=== PATIENT | male | born 1995 | race Caucasian/White ===

== ENCOUNTER 2023-06-30 09:21 | Outpatient (OUT) | payer OTHER, SELFPAY ==
--- NOTE | 2023-06-30 09:53 | XR_ITS ---
The [address] [address] Patient Name: SHAHRAM ACOSTA MRN: [id number] date: 1995 Sex: M Assigned Patient Location: [facility] Current Patient Location: [facility] Accession/Order Number: [id number] Exam Date: 06/30/2023 09:48 Report Date: 06/30/2023 10:55 At the request of: TINA SCHOFIELD Procedure: XR chest 2V EXAM: XR chest 2V HISTORY: Cough R05.9 COMPARISON: None. TECHNIQUE: PA and lateral views of the chest. FINDINGS: The cardiomediastinal silhouette is normal. No focal consolidation is identified. There is no pneumothorax. No pleural effusion is noted. The osseous structures are intact. XR/XR chest 2V IMPRESSION: No acute cardiopulmonary process. Electronically authenticated by: BILL OVIEDO Date: 06/30/2023 10:55
== END 2023-06-30 09:22 | disposition home or self-care (01) ==
LOC: RAD 09:34
PROVIDERS: PCP Family Medicine; Visit Provider Family Medicine
DX: R05.9 Cough, unspecified (principal)
CPT/HCPCS: 71046

== ENCOUNTER 2023-10-17 21:32 | Emergency (ER) | payer OTHER, SELFPAY ==
[2023-10-17 21:37] VITALS: BP 146/84; PULSE 110; RESP 22; TEMP 37.7; O2SAT 97; BMI 54.9
--- OUTSIDE RECORDS SUMMARY | 2023-10-17 21:37 | XMS_ITS | CCD ---
Author Name Unknown Address [address] [place] [id number] Organization [facility] Care Team Providers Care Alterations Manager Name Role Phone KANWAL, DR WILDER Attending Unavailable KANWAL, DR WILDER Consulting Unavailable KANWAL, DR WILDER Primary Care Unavailable KANWAL, DR WILDER Admitting Unavailable Problems Active Problems Problem Classification Problem Date Documented Da te Episodic/Chronic Fever of unknown origin (1 source) Fever, unspecified; Translations: [FEVER UNSPECIFIED] Onset: 05-10-2021 Episodic Other lower respiratory disease (1 source) Cough; Translations: [COUGH] Onset: 05-10-2021 Episodic Unclassified (2 sources) CONTACT W/AND (SUSP) EXPOS COVID-19; Translations: [CONTACT W/AND (SUSP) EXPOS COVID-19] Onset: 05-10-2021 Viral infection (1 source) COVID-19; Translations: [COVID-19] Onset: 05-10-2021 Past or Other Problems Problem Classification Problem Date Documented Da te Episodic/Chronic Unclassified (1 source) CONTACT W/AND (SUSP) EXPOS COVID-19; Translations: [CONTACT W/AND (SUSP) EXPOS COVID-19] Onset: 05-06-2021 Results Test Name Value Interpretation Reference Range Facility D-Dimer High Sensitivityon 0 05-19-2021 D-Dimer High Sensitivity 302 ng/mL High 0-243 [facility] Comment on above: Order Comment: Comme nt add Result Comment: The reference range for D-dimer is <243 ng/mL D-dimer units. D-dimer results must be used in conjunction with a clinical pretest probability (PTP) assessment model for deep vein thrombosis (DVT) and pulmonary embolism (PE). Results <230 ng/mL d-dimer units can be used as a negative predictor in patients with low or moderate probability for DVT/PE. Results above the exclusion threshold of 230 ng/ml D-dimer units for DVT/PE may indicate the need for further diagnostic testing. D-Dimer can be increased in hospitalized patients due to co-morbid conditions. PERFORMED BY: [place] [address] PATHOLOGIST PROJECT EXECUTIVE KIRILL GREER M.D. Performed By: #### B SENIOR ACTUARIAL ANALYST, HS TROP, PTT, CBC, CMP, PT #### [place] [id number] [facility] D-Dimer High Sensitivityon 0 05-18-2021 D-Dimer High Sensitivity 246 ng/mL High 0-243 [facility] Comment on above: Order Comment: Comme nt add Result Comment: The reference range for D-dimer is <243 ng/mL D-dimer units. D-dimer results must be used in conjunction with a clinical pretest probability (PTP) assessment model for deep vein thrombosis (DVT) and pulmonary embolism (PE). Results <230 ng/mL d-dimer units can be used as a negative predictor in patients with low or moderate probability for DVT/PE. Results above the exclusion threshold of 230 ng/ml D-dimer units for DVT/PE may indicate the need for further diagnostic testing. D-Dimer can be increased in hospitalized patients due to co-morbid conditions. PERFORMED BY: [place] [address] PATHOLOGIST PROJECT EXECUTIVE KIRILL GREER M.D. Performed By: #### B SENIOR ACTUARIAL ANALYST, HS TROP, PTT, CBC, CMP, PT #### [place] [id number] [facility] D-Dimer High Sensitivityon 0 05-17-2021 D-Dimer High Sensitivity < 200 Normal 0-243 [facility] Comment on above: Order Comment: Comme nt add Result Comment: The reference range for D-dimer is <243 ng/mL D-dimer units. D-dimer results must be used in conjunction with a clinical pretest probability (PTP) assessment model for deep vein thrombosis (DVT) and pulmonary embolism (PE). Results <230 ng/mL d-dimer units can be used as a negative predictor in patients with low or moderate probability for DVT/PE. Results above the exclusion threshold of 230 ng/ml D-dimer units for DVT/PE may indicate the need for further diagnostic testing. D-Dimer can be increased in hospitalized patients due to co-morbid conditions. PERFORMED BY: [place] [address] PATHOLOGIST PROJECT EXECUTIVE KIRILL GREER M.D. Performed By: #### B SENIOR ACTUARIAL ANALYST, HS TROP, PTT, CBC, CMP, PT #### [facility] [address] [place] [id number] [facility] D-Dimer High Sensitivityon 0 05-16-2021 D-Dimer High Sensitivity 239 ng/mL Normal 0-243 [facility] Comment on above: Order Comment: Comme nt add Result Comment: The reference range for D-dimer is <243 ng/mL D-dimer units. D-dimer results must be used in conjunction with a clinical pretest probability (PTP) assessment model for deep vein thrombosis (DVT) and pulmonary embolism (PE). Results <230 ng/mL d-dimer units can be used as a negative predictor in patients with low or moderate probability for DVT/PE. Results above the exclusion threshold of 230 ng/ml D-dimer units for DVT/PE may indicate the need for further diagnostic testing. D-Dimer can be increased in hospitalized patients due to co-morbid conditions. PERFORMED BY: [place] [address] PATHOLOGIST PROJECT EXECUTIVE KIRILL GREER M.D. Performed By: #### B SENIOR ACTUARIAL ANALYST, HS TROP, PTT, CBC, CMP, PT #### [place] [id number] [facility] B-Type Natriuretic Peptideon 05-15-2021 Natriuretic peptide B (Bld) [Mass/Vol] 24.0 pg/mL Normal 5-100 [facility] Comment on above: Result Comment: PERF ORMED BY: [place] [address] PATHOLOGIST PROJECT EXECUTIVE KIRILL GREER M.D. Performed By: #### B SENIOR ACTUARIAL ANALYST, HS TROP, PTT, CBC, CMP, PT #### [place] [id number] [facility] BioFire Detectedon 1 BioFire Detected Detected Critically abnormal Not Detect e [facility] Comment on above: Result Comment: This is a duplicate RP2.1 COVID (PCR) result to be used for statistical tracking purpose only. PERFORMED BY: [facility] [address] [place] [address] PATHOLOGIST PROJECT EXECUTIVE KIRILL GREER M.D. Performed By: #### R OLVIN PANEL UPP., BIOFIRECOVDET ####[facility] [id number] [place] [id number] [facility] Blood Cultureon 05-15-2021 Bacteria identified Cx Nom (Bld) BioFire BCID Panel results called at 0451 on 05/16/21 Gram Stain Gram Positive Cocci in Clusters ORGANISM: Staphylococcus lugdunensis (O:STALUG) Aerobic FARZANEH Charge (PC45) ----- SUSCEPTIBILITY ---- ORGANISM: O:STALUG ANTIBIOTIC INTERPRETATION FARZANEH Amoxacillin/K Clavulanate S <4/2 Ampicillin/Sulbactam S <8/4 Azithromycin S <2 Cefazolin S <8 Ceftriaxone S <8 Ciprofloxacin S <1 Daptomycin S <1 Erythromycin S <0.25 Levofloxacin S <1 Linezolid S <2 Meropenem S <4 Oxacillin S 1 Penicillin S 0.12 Piperacillin/Tazobac zhu S <4 Rifampin S <1 Tetracycline S <4 Trimethoprim/Sulfame thoxazole S <0.5/9.5 Vancomycin S 1 BioFire BCID Panel results called at 0451 on 05/16/21 Acinetobacter baumannii Not detected Staphylococcus aureus Not detected Ifeoma albicans Not detected E. Coli Not detected E. cloacae complex Not detected Enterococcus Not detected Enterobacteriaceae Not detected Ifeoma glabrata Not detected Haemophilus influenzae Not detected Klebsiella oxytoca Not detected Klebsiella pneumoniae Not detected KPC resistance gene Not Applicable Ifeoma krusei Not detected Listeria monocytogenes Not detected mecA resistance gene Not detected Neisseria meningitidis Not detected Ifeoma parapsilosis Not detected Streptococcus pneumoniae Not detected Proteus Not detected Pseudomonas aeruginosa Not detected Serratia marcescens Not detected Staphylococcus Detected Streptococcus Not detected S. pyogenes (Group A) Not detected S. agalactiae (Group B) Not detected Ifeoma tropicalis Not detected Carlotta/B resistance gene Not Applicable S = SUSCEPTIBLE I = INTERMEDIATE R = RESISTANT BLANK = DATA NOT AVAILABLE, OR DRUG NOT ADVISABLE OR TESTED R* = RESISTANCE DUE TO EXTENDED SPECTRUM BETA-LACTAMASES ESBL = EXTENDED SPECTRUM BETA-LACTAMASE TFG = THYMIDINE-DEPENDENT STRAIN ALE = BETA-LACTAMASE POSITIVE IB = INDUCIBLE BETA-LACTAMASE. APPEARS IN PLACE OF 'S' WITH SPECIES KNOWN TO POSSESS INDUCIBLE BETA-LACTAMASES. POTENTIALLY THEY MAY BECOME RESISTANT TO ALL B-LACTAM DRUGS. PERFORMED BY: [place] [address] PATHOLOGIST PROJECT EXECUTIVE KIRILL GREER M.D. [facility] Comment on above: Performed By: #### L MELVA DEVINE ####[place] [id number] Bacteria identified Cx Nom (Bld) NO GROWTH 5 DAYS PERFORMED BY: [place] [address] PATHOLOGIST PROJECT EXECUTIVE KIRILL GREER M.D. [facility] Comment on above: Performed By: #### L MELVA DEVINE #### [facility] [address] [place] [address] COVID-19 Antigenon 1 COVID-19 Antigen Healthcare Worker?: N Gio Reference Gio Reference Negative SARS-CoV+SARS-CoV-2 (COVID-19) Ag [Presence] in Respiratory specimen by Rapid immunoassay Negative for SARS Antigen by MANGO COVID19 Blank Space Gio Disclaimer Negative results, from patients with symptom Gio Disclaimer onset beyond five days, should be treated as Gio Disclaimer presumptive and confirmation with a molecular Gio Disclaimer assay, if necessary, for patient management, Gio Disclaimer may be performed. Negative results do not rule Gio Disclaimer out COVID-19 and should not be used as the sole Gio Disclaimer basis for treatment or patient management Gio Disclaimer decisions, including infection control decisions. Gio Disclaimer Negative results should be considered in the Gio Disclaimer context of a patient's recent exposures, history Gio Disclaimer and the presence of clinical signs and symptoms Gio Disclaimer consistent with COVID-19. COVID19 Blank Space Gio Disclaimer The Gio SARS Antigen MANGO does not differentiate Gio Disclaimer between SARS-CoV and SARS-CoV-2. COVID19 Blank Space Gio Disclaimer This test was developed and its performance Gio Disclaimer characteristic determined by [employer] and Gio Disclaimer validated at [facility]. This Gio Disclaimer test has not been FDA cleared or approved. This Gio Disclaimer test has been authorized by FDA under an Emergency Use Gio Disclaimer Authorization (EUA). This test has been validated Gio Disclaimer in accordance with the FDA's Guidance Document (Policy Gio Disclaimer for Diagnostics Testing in Laboratories Certified to Gio Disclaimer Perform High Complexity Testing under CLIA prior to Gio Disclaimer Emergency Use Authorization for Coronavirus Gio Disclaimer iseas during the Public Health Emergency) Gio Disclaimer issued on November 23, 2019. This test is only authorized Gio Disclaimer for the duration of time the declaration that Gio Disclaimer circumstances exist justifying the authorization of Gio Disclaimer the emergency use of in vitro diagnostic tests for Gio Disclaimer detection of SARS-CoV-2 virus and/or diagnosis of Gio Disclaimer COVID-19 infection under section 564(b)(1) of the Gio Disclaimer Act, 21 U.S.C. 360bbb-3(b)(1), unless the Gio Disclaimer authorization is terminated or revoked sooner. PERFORMED BY: [address] [place] [address] PATHOLOGIST PROJECT EXECUTIVE KIRILL GREER M.D. Normal [facility] Comment on above: Performed By: #### S OFIANEG, COVID-19 GIO ####[address] Complete Blood Count Auto Di ffon 05-15-2021 Basophils (Bld) [#/Vol] 0.0 10*3/uL Normal 0.0-0.2 [facility] Comment on above: Result Comment: PERF ORMED BY: [address] [place] [address] PATHOLOGIST PROJECT EXECUTIVE KIRILL GREER M.D. Performed By: #### P T, DDIMER, CBC ####[address] Basophils/100 WBC (Bld) 0.1 % Normal . [facility] Comment on above: Performed By: #### P T, DDIMER, CBC ####[address] Eosinophils (Bld) [#/Vol] 0.0 10*3/uL Normal 0.0-0.45 [facility] Comment on above: Performed By: #### P T, DDIMER, CBC ####[address] Eosinophils/100 WBC (Bld) 0.0 % Normal . [facility] Comment on above: Performed By: #### P T, DDIMER, CBC ####[address] Erythrocyte distribution width (RBC) [Ratio] 14.5 % Normal 12.0-14.8 [facility] Comment on above: Performed By: #### P T, DDIMER, CBC ####[address] Hematocrit (Bld) [Volume fraction] 49.1 % Normal 38.8-50.0 [facility] Comment on above: Performed By: #### P TXANDER, CBC ####[address] Hemoglobin (Bld) [Mass/Vol] 16.4 g/dL Normal 13.0-17.0 [facility] Comment on above: Performed By: #### P TXANDER, CBC ####[address] Lymphocytes (Bld) [#/Vol] 0.7 10*3/uL Low 1.00-4.8 [facility] Comment on above: Performed By: #### P XANDER Maradiaga, CBC ####[address] Lymphocytes/100 WBC (Bld) 7.2 % Normal . [facility] Comment on above: Performed By: #### P TXANDER, CBC ####[address] MCH (RBC) [Entitic mass] 28.1 pg Normal 27.5-35.2 [facility] Comment on above: Performed By: #### P TXANDER, CBC ####[address] MCV (RBC) [Entitic vol] 83.9 fL Normal 83.5-101 [facility] Comment on above: Performed By: #### P TXANDER, CBC ####[address] Mean Corpuscular HGB Conc 33.4 g/dL Normal 32.5-35.6 [facility] Comment on above: Performed By: #### P TXANDER, CBC ####[address] Monocytes (Bld) [#/Vol] 0.3 10*3/uL Normal 0.0-0.8 [facility] Comment on above: Performed By: #### P TXANDER, CBC ####[address] [address] [facility] Monocytes/100 WBC (Bld) 3.0 % Normal . [facility] Comment on above: Performed By: #### P T, DDIMER, CBC ####[address] [address] [facility] Neutrophils (Bld) [#/Vol] 8.7 10*3/uL High 1.8-7.7 [facility] Comment on above: Performed By: #### P T, DDIMER, CBC ####[address] [address] [facility] Neutrophils/100 WBC (Bld) 89.7 % Normal . [facility] Comment on above: Performed By: #### P T, DDIMER, CBC ####[address] [address] [facility] Nucleated RBC/100 WBC (Bld) [Ratio] 0.1 % Normal 0-0.5 [facility] Comment on above: Performed By: #### P T, DDIMER, CBC ####[address] [address] [facility] Platelet mean volume (Bld) [Entitic vol] 8.0 fL Normal 6.6-10.1 [facility] Comment on above: Performed By: #### P T, DDIMER, CBC ####[address] [address] [facility] Platelets (Bld) [#/Vol] 188 10*3/uL Normal 150-450 [facility] Comment on above: Performed By: #### P T, DDIMER, CBC ####[address] [address] [facility] RBC (Bld) [#/Vol] 5.85 10*6/uL High 3.90-5.60 [facility] Comment on above: Performed By: #### P T, DDIMER, CBC ####[address] [address] [facility] WBC (Bld) [#/Vol] 9.7 10*3/uL Normal 4.5-11.0 [facility] Comment on above: Performed By: #### P T, DDIMER, CBC ####[facility] [address] Basophils (Bld) [#/Vol] 0.0 10*3/uL Normal 0.0-0.2 [facility] Comment on above: Result Comment: PERF ORMED BY: [place] [address] PATHOLOGIST PROJECT EXECUTIVE KIRILL GREER M.D. Performed By: #### B SENIOR ACTUARIAL ANALYST, HS TROP, PTT, CBC, CMP, PT #### [facility] [address] [place] [address] Basophils/100 WBC (Bld) 0.4 % Normal . [facility] Comment on above: Performed By: #### B SENIOR ACTUARIAL ANALYST, HS TROP, PTT, CBC, CMP, PT #### [address] Eosinophils (Bld) [#/Vol] 0.0 10*3/uL Normal 0.0-0.45 [facility] Comment on above: Performed By: #### B SENIOR ACTUARIAL ANALYST, HS TROP, PTT, CBC, CMP, PT #### [address] Eosinophils/100 WBC (Bld) 0.0 % Normal . [facility] Comment on above: Performed By: #### B SENIOR ACTUARIAL ANALYST, HS TROP, PTT, CBC, CMP, PT #### [facility] [address] [place] [address] Erythrocyte distribution width (RBC) [Ratio] 14.7 % Normal 12.0-14.8 [facility] Comment on above: Performed By: #### B SENIOR ACTUARIAL ANALYST, HS TROP, PTT, CBC, CMP, PT #### [address] Hematocrit (Bld) [Volume fraction] 49.1 % Normal 38.8-50.0 [facility] Comment on above: Performed By: #### B SENIOR ACTUARIAL ANALYST, HS TROP, PTT, CBC, CMP, PT #### [address] Hemoglobin (Bld) [Mass/Vol] 16.4 g/dL Normal 13.0-17.0 [facility] Comment on above: Performed By: #### B SENIOR ACTUARIAL ANALYST, HS TROP, PTT, CBC, CMP, PT #### [address] Lymphocytes (Bld) [#/Vol] 1.2 10*3/uL Normal 1.00-4.8 [facility] Comment on above: Performed By: #### B SENIOR ACTUARIAL ANALYST, HS TROP, PTT, CBC, CMP, PT #### [address] Lymphocytes/100 WBC (Bld) 12.3 % Normal . [facility] Comment on above: Performed By: #### B SENIOR ACTUARIAL ANALYST, HS TROP, PTT, CBC, CMP, PT #### [address] MCH (RBC) [Entitic mass] 27.9 pg Normal 27.5-35.2 [facility] Comment on above: Performed By: #### B SENIOR ACTUARIAL ANALYST, HS TROP, PTT, CBC, CMP, PT #### [address] MCV (RBC) [Entitic vol] 83.6 fL Normal 83.5-101 [facility] Comment on above: Performed By: #### B SENIOR ACTUARIAL ANALYST, HS TROP, PTT, CBC, CMP, PT #### [address] Mean Corpuscular HGB Conc 33.4 g/dL Normal 32.5-35.6 [facility] Comment on above: Performed By: #### B SENIOR ACTUARIAL ANALYST, HS TROP, PTT, CBC, CMP, PT #### [address] Monocytes (Bld) [#/Vol] 0.4 10*3/uL Normal 0.0-0.8 [facility] Comment on above: Performed By: #### B SENIOR ACTUARIAL ANALYST, HS TROP, PTT, CBC, CMP, PT #### [facility] [address] [place] [address] [place] Monocytes/100 WBC (Bld) 3.8 % Normal . [facility] Comment on above: Performed By: #### B SENIOR ACTUARIAL ANALYST, HS TROP, PTT, CBC, CMP, PT #### [address] Neutrophils (Bld) [#/Vol] 8.5 10*3/uL High 1.8-7.7 [facility] Comment on above: Performed By: #### B SENIOR ACTUARIAL ANALYST, HS TROP, PTT, CBC, CMP, PT #### [address] Neutrophils/100 WBC (Bld) 83.5 % Normal . [facility] Comment on above: Performed By: #### B SENIOR ACTUARIAL ANALYST, HS TROP, PTT, CBC, CMP, PT #### [address] Nucleated RBC/100 WBC (Bld) [Ratio] 0.1 % Normal 0-0.5 [facility] Comment on above: Performed By: #### B SENIOR ACTUARIAL ANALYST, HS TROP, PTT, CBC, CMP, PT #### [address] Platelet mean volume (Bld) [Entitic vol] 8.1 fL Normal 6.6-10.1 [facility] Comment on above: Performed By: #### B SENIOR ACTUARIAL ANALYST, HS TROP, PTT, CBC, CMP, PT #### [place] [address] [place] Platelets (Bld) [#/Vol] 202 10*3/uL Normal 150-450 [facility] Comment on above: Performed By: #### B SENIOR ACTUARIAL ANALYST, HS TROP, PTT, CBC, CMP, PT #### [place] [address] [place] RBC (Bld) [#/Vol] 5.87 10*6/uL High 3.90-5.60 [facility] Comment on above: Performed By: #### B SENIOR ACTUARIAL ANALYST, HS TROP, PTT, CBC, CMP, PT #### [facility] [address] WBC (Bld) [#/Vol] 10.2 10*3/uL Normal 4.5-11.0 [facility] Comment on above: Performed By: #### B SENIOR ACTUARIAL ANALYST, HS TROP, PTT, CBC, CMP, PT #### [facility] [address] Comprehensive Metabolic Pane giovana 05-15-2021 Albumin [Mass/Vol] 2.7 g/dL Low 3.2-5.5 [facility] Comment on above: Performed By: #### C MP ####[address] Albumin/Globulin [Mass ratio] 0.7 {ratio} Normal [facility] Comment on above: Performed By: #### C MP ####[place] [id number] [facility] ALP [Catalytic activity/Vol] 70 U/L Normal 32-92 [facility] Comment on above: Performed By: #### C MP ####[address] [address] [facility] ALT [Catalytic activity/Vol] 125 U/L High 10-60 [facility] Comment on above: Performed By: #### C MP ####[address] [address] [facility] AST [Catalytic activity/Vol] 181 U/L High 10-42 [facility] Comment on above: Performed By: #### C MP ####[place] [id number] [facility] Bilirubin [Mass/Vol] 1.2 mg/dL Normal 0.3-1.2 [facility] Comment on above: Performed By: #### C MP ####[address] Calcium [Mass/Vol] 8.2 mg/dL Normal 8.2-10.2 [facility] Comment on above: Performed By: #### C MP ####[place] [address] [place] [id number] [facility] Chloride [Moles/Vol] 102 mmol/L Normal 95-114 [facility] Comment on above: Performed By: #### C MP ####[place] [id number] [facility] CO2 [Moles/Vol] 23.8 mmol/L Normal 22.0-30.0 [facility] Comment on above: Performed By: #### C MP ####[place] [id number] [facility] Creatinine [Mass/Vol] 0.84 mg/dL Normal 0.64-1.27 [facility] Comment on above: Performed By: #### C MP ####[place] [id number] [facility] Creatinine Clr Calc Pharmacy 197.65 [facility] Comment on above: Result Comment: PERF ORMED BY: [facility] [address] [address] PATHOLOGIST PROJECT EXECUTIVE KIRILL GREER M.D. Performed By: #### C MP ####[place] [id number] [facility] Estimated GFR ( Patricia > 60 [facility] Comment on above: Result Comment: GFR estimated reference range: According to KDOQI guidelines, <60 ml/min/1.73m2 is sufficient to diagnose a patient with chronic kidney disease. Performed By: #### C MP ####[place] [id number] [facility] Estimated GFR (Non- Am > 60 [facility] Comment on above: Performed By: #### C MP ####[place] [id number] [facility] Globulin (S) [Mass/Vol] 4.1 g/dL [facility] Comment on above: Performed By: #### C MP ####[place] [id number] [facility] Glucose [Mass/Vol] 161 mg/dL High 70-100 [facility] Comment on above: Result Comment: Lottie Glucose Reference Range is dependent on time and content of last meal. Glucose of more than 200 mg/dL in a nonstressed, ambulatory subject supports the diagnosis of Diabetes Mellitus. ADA recommended reference range Performed By: #### C MP ####[facility] [place] [id number] [facility] Potassium [Moles/Vol] 4.1 mmol/L Normal 3.5-5.1 [facility] Comment on above: Performed By: #### C MP ####[facility] [place] [id number] [facility] Protein [Mass/Vol] 6.8 g/dL Normal 6.1-7.9 [facility] Comment on above: Performed By: #### C MP ####[facility] [place], [place] [phone] [facility] Sodium [Moles/Vol] 137 mmol/L Normal 136-146 [facility] Comment on above: Performed By: #### C MP ####[facility] [place], [place] [phone] [facility] Urea nitrogen [Mass/Vol] 10 mg/dL Normal 9-23 [facility] Comment on above: Performed By: #### C MP ####[facility] [place], [place] [id number] [facility] Albumin [Mass/Vol] 2.9 g/dL Low 3.2-5.5 [facility] Comment on above: Performed By: #### B SENIOR ACTUARIAL ANALYST, HS TROP, PTT, CBC, CMP, PT #### [facility] [address] [place] [id number] [place] Albumin/Globulin [Mass ratio] 0.6 {ratio} Normal [facility] Comment on above: Performed By: #### B SENIOR ACTUARIAL ANALYST, HS TROP, PTT, CBC, CMP, PT #### [facility] [address] [place] [id number] [place] ALP [Catalytic activity/Vol] 65 U/L Normal 32-92 [facility] Comment on above: Performed By: #### B SENIOR ACTUARIAL ANALYST, HS TROP, PTT, CBC, CMP, PT #### [facility] [address] ALT [Catalytic activity/Vol] 134 U/L High 10-60 [facility] Comment on above: Performed By: #### B SENIOR ACTUARIAL ANALYST, HS TROP, PTT, CBC, CMP, PT #### [facility] [address] AST [Catalytic activity/Vol] 215 U/L High 10-42 [facility] Comment on above: Performed By: #### B SENIOR ACTUARIAL ANALYST, HS TROP, PTT, CBC, CMP, PT #### [address] Bilirubin [Mass/Vol] 0.9 mg/dL Normal 0.3-1.2 [facility] Comment on above: Performed By: #### B SENIOR ACTUARIAL ANALYST, HS TROP, PTT, CBC, CMP, PT #### [address] Calcium [Mass/Vol] 8.3 mg/dL Normal 8.2-10.2 [facility] Comment on above: Performed By: #### B SENIOR ACTUARIAL ANALYST, HS TROP, PTT, CBC, CMP, PT #### [address] Chloride [Moles/Vol] 102 mmol/L Normal 95-114 [facility] Comment on above: Performed By: #### B SENIOR ACTUARIAL ANALYST, HS TROP, PTT, CBC, CMP, PT #### [address] CO2 [Moles/Vol] 22.1 mmol/L Normal 22.0-30.0 [facility] Comment on above: Performed By: #### B SENIOR ACTUARIAL ANALYST, HS TROP, PTT, CBC, CMP, PT #### [address] Creatinine [Mass/Vol] 0.75 mg/dL Normal 0.64-1.27 [facility] Comment on above: Performed By: #### B SENIOR ACTUARIAL ANALYST, HS TROP, PTT, CBC, CMP, PT #### [place] [address] [place] Creatinine Clr Calc Pharmacy [phone] [facility] Comment on above: Result Comment: PERF ORMED BY: [place] [address] PATHOLOGIST PROJECT EXECUTIVE KIRILL GREER M.D. Performed By: #### B SENIOR ACTUARIAL ANALYST, HS TROP, PTT, CBC, CMP, PT #### [address] Estimated GFR ( Patricia > 60 [facility] [facility] Comment on above: Result Comment: GFR estimated reference range: According to KDOQI guidelines, <60 ml/min/1.73m2 is sufficient to diagnose a patient with chronic kidney disease. Performed By: #### B SENIOR ACTUARIAL ANALYST, HS TROP, PTT, CBC, CMP, PT #### [address] Estimated GFR (Non- Am > 60 [facility] Comment on above: Performed By: #### B SENIOR ACTUARIAL ANALYST, HS TROP, PTT, CBC, CMP, PT #### [address] Globulin (S) [Mass/Vol] 4.7 g/dL Normal [facility] Comment on above: Performed By: #### B SENIOR ACTUARIAL ANALYST, HS TROP, PTT, CBC, CMP, PT #### [address] Glucose [Mass/Vol] 108 mg/dL High 70-100 [facility] Comment on above: Result Comment: Lottie Glucose Reference Range is dependent on time and content of last meal. Glucose of more than 200 mg/dL in a nonstressed, ambulatory subject supports the diagnosis of Diabetes Mellitus. ADA recommended reference range Performed By: #### B SENIOR ACTUARIAL ANALYST, HS TROP, PTT, CBC, CMP, PT #### [address] Potassium [Moles/Vol] 3.8 mmol/L Normal 3.5-5.1 [facility] Comment on above: Performed By: #### B SENIOR ACTUARIAL ANALYST, HS TROP, PTT, CBC, CMP, PT #### [place] [address] [place] Protein [Mass/Vol] 7.6 g/dL Normal 6.1-7.9 [facility] Comment on above: Performed By: #### B SENIOR ACTUARIAL ANALYST, HS TROP, PTT, CBC, CMP, PT #### [facility] [address] Sodium [Moles/Vol] 135 mmol/L Low 136-146 [facility] Comment on above: Performed By: #### B SENIOR ACTUARIAL ANALYST, HS TROP, PTT, CBC, CMP, PT #### [facility] [address] Urea nitrogen [Mass/Vol] 9 mg/dL Normal 9- [facility] Comment on above: Performed By: #### B SENIOR ACTUARIAL ANALYST, HS TROP, PTT, CBC, CMP, PT #### [address] D-Dimer High Sensitivityon 0 05-15-2021 D-Dimer High Sensitivity 268 ng/mL High 0-243 [facility] Comment on above: Order Comment: Comme nt add Result Comment: The reference range for D-dimer is <243 ng/mL D-dimer units. D-dimer results must be used in conjunction with a clinical pretest probability (PTP) assessment model for deep vein thrombosis (DVT) and pulmonary embolism (PE). Results <230 ng/mL d-dimer units can be used as a negative predictor in patients with low or moderate probability for DVT/PE. Results above the exclusion threshold of 230 ng/ml D-dimer units for DVT/PE may indicate the need for further diagnostic testing. D-Dimer can be increased in hospitalized patients due to co-morbid conditions. PERFORMED BY: [place] [address] PATHOLOGIST PROJECT EXECUTIVE KIRILL GREER M.D. Performed By: #### P T, DDIMER, CBC ####[facility] [place] [id number] [facility] ECG 12 lead ECGon 05-15-2021 ECG 12 lead ECG [facility] [place] [address] [place] [address] Electrocardiograph Report Signed Patient: Scooter Ordonez MR#: [id number] : 1995 Acct:[id number] Age/Sex: 26 / M ADM Date: 05/15/21 Loc: 4 Room: [address] [place] [address] Type: ADM IN Attending Dr: Pati Montoya MD Ordering Provider: Jerry Blake DO Date of Service: 05/14/21 ECG/ECG 12 lead ECG: Shortness of Breath/Dyspnea Copies to: Test Reason : Blood Pressure : 149/095 mmHG Vent. Rate : 108 BPM Atrial Rate : 108 BPM P-R Int : 124 ms QRS Dur : 086 ms QT Int : 340 ms P-R-T Axes : 057 051 017 degrees QTc Int : 455 ms Sinus tachycardia Otherwise normal ECG Confirmed by Will Basilio DO ([id number]) on 05/15/2021 6:43:50 AM Referred By: Electronically Signed By:Will Basilio DO Transcribed By: MUS Signed By Will Basilio DO 05/15 0643 Normal [facility] Lactic Acidon 05-15-2021 Lactate [Moles/Vol] 1.1 mmol/L Normal 0.5-2.2 [facility] Comment on above: Result Comment: PERF ORMED BY: [place] [address] PATHOLOGIST PROJECT EXECUTIVE KIRILL GREER M.D. Performed By: #### L ACTIC, CUBLD #### [facility] [address] [place] [address] [facility] Partial Thromboplastin Timeo n 05-15-2021 aPTT Coag (Bld) [Time] 33.1 s Normal 25.1-36.5 [facility] Comment on above: Result Comment: PERF ORMED BY: [address] [address] PATHOLOGIST PROJECT EXECUTIVE KIRILL GREER M.D. Performed By: #### B SENIOR ACTUARIAL ANALYST, HS TROP, PTT, CBC, CMP, PT #### [facility] [address] [place] [address] [place] Prothrombin Time INRon 05-15 INR Coag (PPP) [Relative time] 1.1 {INR} Normal [facility] Comment on above: Order Comment: Comme nt add Result Comment: INR Therapeutic Range A) Pre- and Peroperative OAT started two weeks before surgery. NOT HIP SURGERY: 1.5 - 2.5 HIP SURGERY: 2 - 3 B) Primary and secondary prevention of venous THROMBOSIS: 2 - 3 C) Active venous thrombosis, pulmonary embolism and prevention of recurrent venous thrombosis: 2 - 3 D) Prevention of arterial thromboembolism including patients with mechanical heart valves: 3 - 4.5 Performed By: #### P T, DDIMER, CBC ####[place] [address] PT Coag (PPP) [Time] 12.2 s Normal 9.0-12.9 [facility] Comment on above: Order Comment: Comme nt add Performed By: #### P T, DDIMER, CBC ####[address] INR Coag (PPP) [Relative time] 1.1 {INR} Normal [facility] Comment on above: Result Comment: INR Therapeutic Range A) Pre- and Peroperative OAT started two weeks before surgery. NOT HIP SURGERY: 1.5 - 2.5 HIP SURGERY: 2 - 3 B) Primary and secondary prevention of venous THROMBOSIS: 2 - 3 C) Active venous thrombosis, pulmonary embolism and prevention of recurrent venous thrombosis: 2 - 3 D) Prevention of arterial thromboembolism including patients with mechanical heart valves: 3 - 4.5 Performed By: #### B SENIOR ACTUARIAL ANALYST, HS TROP, PTT, CBC, CMP, PT #### [facility] [address] [place] [address] PT Coag (PPP) [Time] 11.8 s Normal 9.0-12.9 [facility] Comment on above: Performed By: #### B SENIOR ACTUARIAL ANALYST, HS TROP, PTT, CBC, CMP, PT #### [address] Respiratory (Upper) Panel, P CRon 05-15-2021 Respiratory (Upper) Panel, PCR Results called at 0239 on 05/15/21 Adenovirus Not detected Bordetella parapertussis Not detected Chlamydia pneumoniae Not detected Coronavirus 229E Not detected Coronavirus HKU1 Not detected Coronavirus NL63 Not detected Coronavirus OC43 Not detected Influenza A Not detected Influenza B Not detected Human Metapneumovirus Not detected Mycoplasma pneumoniae Not detected Parainfluenza Virus 1 Not detected Parainfluenza Virus 2 Not detected Parainfluenza Virus 3 Not detected Parainfluenza Virus 4 Not detected Bordetella pertussis-ptxP Not detected Human Rhino/Enterovirus Not detected Resp. Syncytial Virus Not detected COVID19 Blank Space COVID19 Det Results Detected results will only be called to COVID19 Det Results Providers for the following groups of patients: COVID19 Det Results Pre-Surgical Testing, Emergency Room, and Inpatients. COVID19 Blank Space COVID-19 Detected/Not Detected Detected PERFORMED BY: [facility] [address] [place] [address] PATHOLOGIST PROJECT EXECUTIVE KIRILL GREER M.D. Normal [facility] Comment on above: Performed By: #### R OLVIN PANEL UPP., BIOFIRECOVDET ####[place] [id number] [facility] Gio Ag Negativeon 05-15-20 21 Gio Ag Negative Negative Normal Negative [facility] Comment on above: Result Comment: This is a duplicate Gio SARS Antigen (MANGO) result to be used for statistical tracking purpose only. PERFORMED BY: [facility] [address] [place] [id number] PATHOLOGIST PROJECT EXECUTIVE KIRILL GREER M.D. Performed By: #### S RUTHY, COVID-19 GIO ####[place] [address] [place] [phone] [facility] Troponin I High Sensitivityo n 05-15-2021 Troponin I High Sensitivity 15 pg/mL Normal 0-20 [facility] Comment on above: Result Comment: PERF ORMED BY: [place] [address] PATHOLOGIST PROJECT EXECUTIVE KIRILL GREER M.D. Performed By: #### B SENIOR ACTUARIAL ANALYST, HS TROP, PTT, CBC, CMP, PT #### [place] [address] [place] XR chest 1V portableon 05-15 XR chest 1V portable [facility] [place] [address] XRay Report Signed Patient: Scooter Ordonez MR#: [id number] : 1995 Acct:[id number] Age/Sex: 26 / M ADM Date: 05/15/21 Loc: Room: [address] [place] [address] Type: ADM IN Attending Dr: Pati Montoya MD Ordering Provider: Jerry Blake DO Date of Service: 05/14/21 XR/XR chest 1V portable: Shortness of Breath/Dyspnea Copies to: DO Pati Albarado MD PORTABLE AP ERECT CHEST 0346 hours CLINICAL HISTORY: Shortness of breath. COVID +. COMPARISON: 05/10/2021 There is shallow inspiration. The heart is not significantly enlarged. There are worsening bilateral patchy pulmonary opacities. The costophrenic angles are clear. No pneumothorax is seen. XR/XR chest 1V portable IMPRESSION: WORSENING INFILTRATES. Impression dictated by: Renate Lopez M.D.05/15/2021 8:18 AM Dictation Location: [place] [address] Transcribed By: [facility] 05/15/21817 Dictated By: Renate Lopez MD 05/15/21816 Signed By: 05/15/21817 Normal [facility] ECG 12 lead ECGon 05-10-2021 ECG 12 lead ECG [facility] [place] [address] Electrocardiograph Report Signed Patient: Scooter Ordonez MR#: [id number] : 1995 Acct:[id number] Age/Sex: 26 / M ADM Date: 05/10/21 Loc: ER Room: Type: [facility] ER Attending Dr: Ordering Provider: Noam Falcon MD Date of Service: 05/10/21 ECG/ECG 12 lead ECG: Upper Respiratory Infection Copies to: Test Reason : Blood Pressure : 139/066 mmHG Vent. Rate : 099 BPM Atrial Rate : 099 BPM P-R Int : 124 ms QRS Dur : 090 ms QT Int : 356 ms P-R-T Axes : 068 065 025 degrees QTc Int : 456 ms Normal sinus rhythm Normal ECG No previous ECGs available Confirmed by NOAM FALCON MD ([id number]) on 05/10/2021 3:23:02 PM Referred By: Electronically Signed By:NOAM FALCON MD Transcribed By: MUS Signed By Noam Falcon MD 04/23 04/12 1523 [facility] XR chest 1V portableon 05-10 XR chest 1V portable [facility] [place] [address] XRay Report Signed Patient: Scooter Ordonez MR#: [id number] : 1995 Acct:[id number] Age/Sex: 26 / M ADM Date: 05/10/21 Loc: ER Room: Type: [facility] ER Attending Dr: Ordering Provider: Noam Falcon MD Date of Service: 05/10/21 XR/XR chest 1V portable: Upper Respiratory Infection Copies to: Noam Falcon MD XR chest 1V portable 05/10/2021 8:07 AM SIGNS AND SYMPTOMS: Cough, fever, shortness of breath PROTOCOL: Frontal radiograph of the chest COMPARISON: None FINDINGS: The trachea is midline. The heart and mediastinal structures are within normal limits. There is perihilar airspace opacity with interstitial prominence bilaterally suggesting a developing atypical/viral pneumonia. The bony thorax is intact. XR/XR chest 1V portable IMPRESSION: There is perihilar airspace opacity with interstitial prominence bilaterally suggesting a developing atypical/viral pneumonia. Impression dictated by: Sander Joaquin M.D.05/10/2021 8:42 AM Dictation Location: [place] [address] Transcribed By: ALFREDO 05/10/21841 Dictated By: Sander Joaquin II, MD 05/10/21840 Signed By: 05/10/21841 [facility] Covid-19 PCR (CVDTBH)on 04-23 SARS-CoV-2 (COVID-19) RNA COLEMAN+probe Ql (Unsp spec) Detected Invalid Interpretation Code NOT DETECTED [facility] Comment on above: Result Comment: This test is not yet approved or cleared by the [place] FDA. When there are no FDA-approved or cleared tests available, and other criteria are met, FDA can make tests available under an emergency access mechanism called an Emergency Use Authorization (EUA). The EUA for this test is supported by the [employer] of Health and Human Service's (HHS's) declaration that circumstances exist to justify the emergency use of in vitro diagnostics for the detection and/or diagnosis of the virus that causes COVID-19. This EUA will remain in effect (meaning this test can be used) for the duration of the COVID-19 declaration justifying emergency of IVDs, unless it is terminated or revoked by FDA (after which the test may no longer be used). Performed By: #### [facility] #### [facility] [address] [address] [address] Jono Ortiz Encounters Encounter Date Encounter Type Care Provider Facility Start: 05-06-2021 End: 05-06-[address] TINA SCHOFIELD Facility: Payers Date Payer Category Payer Unknown [id number] 1959 Unknown [id number] Summary Purpose Family History No Family History Records FoundNo Family History Records Found Advance Directives No Advanced Directives Records FoundNo Advanced Directives Records Found Additional Source Comments (unrecognized sect ion and content) No Status Records FoundNo Status Records Found INFORMATION SOURCE (unrecogn ized section and content) DATE CREATED AUTHOR 05/11/2021 [facility] DATE CREATED AUTHOR AUTHOR'S ORGANIZ ATION 09/16/2021 [place] FOR RECORDS PERTAINING TO PATIENTS WHO ARE OR HAVE BEEN ENROLLED IN A CHEMICAL DEPENDENCY/SUBSTANCEABUSE PROGRAM, SOME INFORMATION MAY BE OMITTED. This clinical summary was aggregated from multiple sources. Caution should be exercised in using it in the provision of clinical care. This summary normalizes information from multiple sources, and as a consequence, information in this document may materially change the coding, format and clinical context of patient data. In addition, data may be omitted in some cases. CLINICAL DECISIONS SHOULD BE BASED ON THE PRIMARY CLINICAL RECORDS. [facility] [employer] provides no warranty or guarantee of the accuracy or completeness of information in this document.
--- NOTE | 2023-10-17 21:53 | CT_ITS ---
The [address] [address] Patient Name: SHAHRAM ACOSTA MRN: [id number] date: 1995 Sex: M Assigned Patient Location: ER Current Patient Location: ER Accession/Order Number: [id number] Exam Date: 10/17/2023 22:16 Report Date: 10/17/2023 23:58 At the request of: IZABELLA MARKER Procedure: CT abdomen pelvis w con CT ABDOMEN AND PELVIS WITH CONTRAST: INDICATION: rectal pain, fever. COMPARISON: None. TECHNIQUE:Multiple thin section transaxial slices were acquired through the abdomen and pelvis with intravenous contrast. Coronal and sagittal reconstructed images were reviewed. Oral contrastwas administered. FINDINGS: LOWER CHEST: The lower chest is unremarkable. LIVER: The liver is unremarkable. GALLBLADDER AND BILIARY SYSTEM: No obvious ductal dilation. No calcified stones. SPLEEN: The spleen is unremarkable. PANCREAS: The pancreas is unremarkable. ADRENAL GLANDS: The adrenal glands are unremarkable. KIDNEYS AND URETERS: There is no hydronephrosis of the kidneys.No obstructing urologic calcifications are present. VASCULATURE: Vascularity is unremarkable. PERITONEUM/RETROPERITONEUM: Peritoneum/retroperitoneum is unremarkable. LYMPH NODES: No suspicious lymphadenopathy. GASTROINTESTINAL TRACT: The bowel is normal in caliber.There is chronic colonic diverticulosis of the colon without acute inflammation.The appendix is visualized and is not inflamed. BLADDER: The urinary bladder is unremarkable. REPRODUCTIVE SYSTEM: Reproductive system is unremarkable. BODY WALL: There is a tiny fat-containing umbilical hernia. There are no subcutaneous or soft tissue fluid collections identified specifically in the perirectal or perineal spaces of the pelvis. BONES: There are 4 cm form sclerotic densities in each femoral head consistent with avascular necrosis. CT/CT abdomen pelvis w con IMPRESSION: 1. No definitive acute inflammatory process or obstructive uropathy. No abnormal fluid collections are identified specifically in the perirectal or perianal spaces of the pelvis. 2. 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 Electronically authenticated by: BHANU CHAU Date: 10/17/2023 23:58
--- NOTE | 2023-10-17 21:56 | ED_ITS ---
HPI - General Adult General Chief complaint: Skin/Abscess/Foreign Body Stated complaint: Abscess Lower Pain Time Seen by Provider: 10/17/23 21:45 Source: patient Mode of arrival: walk-in Limitations: no limitations History of Present Illness HPI narrative: This 28-year-old male who is morbidly obese presents for evaluation of rectal pain and pressure. The patient states that he has been having pain in his rectal area since Wednesday of last week. He saw his family physician and it was thought that he may have a hemorrhoid. He has been using topical hemorrhoid preparations but the pain is getting worse. He has had a fever Tmax 101. He states he has severe pain when sitting or trying to have a bowel movement or get up from a sitting position. He states that he now feels that there is a lump in his rectal area. He states he is constipated because he has pain with attempting to have a bowel movement. He has been using fiber supplements and hemorrhoid preparations without significant improvement. He denies any nausea or vomiting. He has been using Tylenol and Motrin for his pain but it is lasting only a few hours and then the pain recurs. He denies any anal intercourse or that he has put anything into his rectum. He states that he went into his mothers hot tub over the weekend and his pain was fine until he got out and then recurred and has not gone away. He has not had any bleeding or discharge from his rectum. Related Data Allergies Allergy/AdvReac Type Severity Reaction Status Date / Time No Known Drug Allergies Allergy Verified 10/17/23 21:42 Review of Systems ROS Status of ROS 10 or more systems reviewed and unremark able except as noted in history and below Exam Narrative Exam Narrative: Nurses note and vital signs reviewed and patient is not hypoxic. He has a low- grade fever and is tachycardic with a pulse of 110, blood pressure is elevated at 146/84 General: Nontoxic, alert, diaphoretic overweight male, no respiratory distress Skin: Warm, Diaphoretic, no skin rash noted Head: Normocephalic, atraumatic Eye: Normal conjunctiva, no drainage, EOMI. PERRL Ears, Nose, Mouth, and Throat: oral mucosa is moist. Cardiovascular: Regular Rate and RhythmS1-S2, tachycardic at 110 Respiratory: Patient is in no distress, no accessory muscle use, lungs are clear to auscultation, no wheezing, rales or rhonchi Back: non-tender, no CVA tenderness bilaterally to percussion. GI: Normal bowel sounds, no tenderness to palpation, no masses appreciated. No rebound, guarding, or rigidity noted. No skin lesions or involvement of the scrotum or testicles and no signs of necrotizing fasciitis Rectum: There are no appreciable hemorrhoids, palpable masses or fissures. Rectum was exquisitely tender to the touch specifically at the 9 o'clock position. I was unable to do a complete digital exam due to discomfort however I did not appreciate any mass, fluctuance or other abnormality. No fissures or skin lesions were noted Musculoskeletal: The patient has no evidence of calf tenderness, no pitting edema, symmetrical pulses noted bilaterally Neurological: A&O x4, normal speech Psychiatric: Cooperative Constitutional Vital Signs, click to edit/add: Last Vital Signs Temp 99.8 F 10/17/23 21:37 Pulse 110 H 10/17/23 21:37 Resp 22 10/17/23 21:37 BP 146/84 H 10/17/23 21:37 Pulse Ox 97 10/17/23 21:37 O2 Del Method Room Air 10/17/23 21:37 Course Vital Signs Vital signs: Vital Signs Temperature 99.8 F 10/17/23 21:37 Pulse Rate 110 H 10/17/23 21:37 Respiratory Rate 22 10/17/23 21:37 Blood Pressure 146/84 H 10/17/23 21:37 Pulse Oximetry 97 10/17/23 21:37 Oxygen Delivery Method Room Air 10/17/23 21:37 Temperature 99.8 F 10/17/23 21:37 Pulse Rate 110 H 10/17/23 21:37 Respiratory Rate 22 10/17/23 21:37 Blood Pressure 146/84 H 10/17/23 21:37 Pulse Oximetry 97 10/17/23 21:37 Oxygen Delivery Method Room Air 10/17/23 21:37 Medical Decision Making MDM Narrative Medical decision making narrative: This 28-year-old male who is morbidly obese but otherwise healthy presents for evaluation of rectal pain for the past 6 days. There has not been any drainage from his rectum or bleeding. The scene but his family physician's office by the nurse practitioner who recommended treatment for hemorrhoids. He bought the hemorrhoidal treatments and has been using them without significant relief. He states he has also had a fever. He has been constipated because it hurts to have a bowel movement but he has been taking stool softeners. Upon arrival he was noted to be tachycardic and diaphoretic. He appeared to be breaking a fever. His abdomen is soft. He has not have any nausea or vomiting. Rectal exam was performed with the nurse in the room and did not appreciate anything abnormal, I did not see any fissures, I did not see or palpate any hemorrhoids. His rectal area was exquisitely tender but I did not feel any masses or areas of fluctuance. Due to his fever, rectal pain for unknown reasons routine labs are ordered. He has a white count of 16.8. He has a normal lactic acid. The remainder of his labs are normal. Blood cultures are pending. He was medicated emergency department with IV fluids, 3 g of IV Unasyn and 4 mg of IV morphine for pain and Zofran to prevent nausea. CT scan abdomen and pelvis which is included in the body of this report does not show any acute findings to elucida te the etiology of the patient's pain however I did explain to him in light of the fact that he is having fevers, chills and rectal pain/proctitis we will treat him empirically for possible developing perirectal abscess. He will be discharged home with prescription for Percocet, Zofran, Augmentin and Colace. He did get a referral to gastrointestinal and plans to call later today to make his appointment. He was given a note for work and recommendation for sitz bath and attenuation of ibuprofen as needed for pain. The CT scan also showed avascular necrosis of both hips. The patient states he has been on steroids for the past several years intermittently due to lung problems and COVID 19. [place] was reviewed and is negative for any recent narcotic prescriptions. Medical Records Medical records narrative: The [place] [id number] CT Scan Report Signed Patient: SHAHRAM ACOSTA MR#: [id number] : 1995 Acct:[id number] Age/Sex: 28 / M ADM Date: 10/17/23 Loc: ER Attending Dr: Ordering Physician: Sharon Trotter Date of Service: 10/17/23 Procedure(s): CT abdomen pelvis w con Accession Number(s): [id number] cc: KANWAL,PAMELAERIK ~ The [facility] [address] [id number] Patient Name: SHAHRAM ACOSTA MRN: [id number] date: 1995 Sex: M Assigned Patient Location: ER Current Patient Location: ER Accession/Order Number: [id number] Exam Date: 10/17/2023 22:16 Report Date: 10/17/2023 23:58 At the request of: SHARON MARKER Procedure: CT abdomen pelvis w con CT ABDOMEN AND PELVIS WITH CONTRAST: INDICATION: rectal pain, fever. COMPARISON: None. TECHNIQUE:Multiple thin section transaxial slices were acquired through the abdomen and pelvis with intravenous contrast. Coronal and sagittal reconstructed images were reviewed. Oral contrastwas administered. FINDINGS: LOWER CHEST: The lower chest is unremarkable. LIVER: The liver is unremarkable. GALLBLADDER AND BILIARY SYSTEM: No obvious ductal dilation. No calcified stones. SPLEEN: The spleen is unremarkable. PANCREAS: The pancreas is unremarkable. ADRENAL GLANDS: The adrenal glands are unremarkable. KIDNEYS AND URETERS: There is no hydronephrosis of the kidneys.No obstructing urologic calcifications are present. VASCULATURE: Vascularity is unremarkable. PERITONEUM/RETROPERITONEUM: Peritoneum/retroperitoneum is unremarkable. LYMPH NODES: No suspicious lymphadenopathy. GASTROINTESTINAL TRACT: The bowel is normal in caliber.There is chronic colonic diverticulosis of the colon without acute inflammation.The appendix is visualized and is not inflamed. BLADDER: The urinary bladder is unremarkable. REPRODUCTIVE SYSTEM: Reproductive system is unremarkable. BODY WALL: There is a tiny fat-containing umbilical hernia. There are no subcutaneous or soft tissue fluid collections identified specifically in the perirectal or perineal spaces of the pelvis. BONES: There are 4 cm form sclerotic densities in each femoral head consistent with avascular necrosis. CT/CT abdomen pelvis w con IMPRESSION: 1. No definitive acute inflammatory process or obstructive uropathy. No abnormal fluid collections are identified specifically in the perirectal or perianal spaces of the pelvis. 2. 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 Lab Data Lab results reviewed: Yes I reviewed the patient's lab results Lab results narrative: WBC elevated at 16.8, normal lactic acid, normal electrolytes Labs: Lab Results 10/17/23 Range/Units 22:05 WBC 16.8 H (4.0-11.0) 10^3/uL RBC 4.87 (4.70-6.10) 10^6/uL Hgb 13.4 L (14.0-18.0) g/dL Hct 42.6 (42.0-54.0) % MCV 87.5 (80.0-94.0) fL MCH 27.5 (25.9-34.0) pg MCHC 31.5 (29.9-35.2) g/dL RDW 13.7 (11.0-15.0) % Plt Count 253 (150-450) 10^3/uL MPV 10.2 (9.5-13.5) fL Neut % (Auto) 72.9 (43.0-75.0) % Lymph % (Auto) 18.5 L (20.5-60.0) % [place] % (Auto) 7.8 (1.7-12.0) % Eos % (Auto) 0.2 L (0.9-7.0) % Baso % (Auto) 0.4 (0.2-2.0) % Neut # (Auto) 12.3 H (1.4-6.5) 10^3/uL Lymph # (Auto) 3.1 (1.2-3.8) 10^3/uL [place] # (Auto) 1.3 H (0.3-0.8) 10^3/uL Eos # (Auto) 0.0 (0.0-0.7) 10^3/uL Baso # (Auto) 0.1 (0.0-0.1) 10^3/uL Abs Immat Gran (auto) 0.04 H (0.00-0.03) 10^3/uL Imm/Tot Granulo (auto) 0.2 (0.0-0.5) % Sodium 142 (136-145) mmol/L Potassium 3.7 (3.5-5.1) mmol/L Chloride 106 (98-107) mmol/L Carbon Dioxide 25.2 (21.0-32.0) mmol/L Anion Gap 14.5 BUN 19.0 H (7.0-18.0) mg/dL Creatinine 0.85 (0.70-1.30) mg/dL Est GFR ( Amer) >60 (>=60) Est GFR (Non-Af Amer) >60 (>=60) BUN/Creatinine Ratio 22.4 Glucose 107 H (74-106) mg/dL Lactate 1.0 (0.4-2.0) mmol/L Calcium 8.7 (8.5-10.1) mg/dL Total Bilirubin 0.3 (0.2-1.0) mg/dL AST 20 (15-37) U/L ALT 31 (16-63) U/L Alkaline Phosphatase 98 (46-116) U/L Total Protein 8.1 (6.4-8.2) g/dL Albumin 3.3 L (3.4-5.0) g/dL Globulin 4.8 g/dL Albumin/Globulin Ratio 0.7 Discharge Plan Discharge Chief Complaint: Skin/Abscess/Foreign Body Clinical Impression: Pain, rectal, Avascular necrosis of bone of hip Patient Disposition: Home, Self-Care Time of Disposition Decision: 00:13 Condition: Good Instructions: Proctitis (ED), Rectal Pain (ED) Stand Alone Forms: Portal Instructions Referrals: TINA SCHOFIELD [Primary Care Provider] - 1 week
[2023-10-17 22:30] LABS: Basophils Absolute Auto 0.1 10^3/uL (0.0-0.1); Basophils Percent Auto 0.4 % (0.2-2.0); Eosinophils Percent Auto 0.2 % (0.9-7.0); Hematocrit 42.6 % (42.0-54.0); Hemoglobin 13.4 g/dL (14.0-18.0); Immature Granulocytes Abs Auto 0.04 10^3/uL (0.00-0.03); Immature Granulocytes Pct Auto 0.2 % (0.0-0.5); Lymphocytes Absolute Auto 3.1 10^3/uL (1.2-3.8); Lymphocytes Percent Auto 18.5 % (20.5-60.0); Mean Corpuscular HGB Conc 31.5 g/dL (29.9-35.2); Mean Corpuscular Hemoglobin 27.5 pg (25.9-34.0); Mean Corpuscular Volume 87.5 fL (80.0-94.0); Mean Platelet Volume 10.2 fL (9.5-13.5); Monocytes Absolute Auto 1.3 10^3/uL (0.3-0.8); Monocytes Percent Auto 7.8 % (1.7-12.0); Neutrophils Absolute Auto 12.3 10^3/uL (1.4-6.5); Neutrophils Percent Auto 72.9 % (43.0-75.0); Platelet Count 253 10^3/uL (150-450); Red Blood Count 4.87 10^6/uL (4.70-6.10); Red Cell Distribution Width 13.7 % (11.0-15.0); White Blood Count 16.8 10^3/uL (4.0-11.0)
[2023-10-17] MEDS: ONDANSETRON PF 4 MG/2 ML VIAL IV (22:37)
[2023-10-17] MEDS: MORPHINE SULFATE 4 MG/ML VIAL IV (22:37)
[2023-10-17] MEDS: 0.9 % SODIUM CHLORIDE 1,000 ML 1000 ML IV (22:37)
[2023-10-17 22:50] LABS: Alanine Aminotransferase 31 U/L (16-63); Albumin Globulin Ratio 0.7; Albumin Level 3.3 g/dL (3.4-5.0); Alkaline Phosphatase 98 U/L (46-116); Anion Gap 14.5; Aspartate Amino Transferase 20 U/L (15-37); BUN Creatinine Ratio 22.4; Bilirubin Total 0.3 mg/dL (0.2-1.0); Calcium 8.7 mg/dL (8.5-10.1); Carbon Dioxide 25.2 mmol/L (21.0-32.0); Chloride 106 mmol/L (98-107); Estimated GFR (African America >60 (>=60); Estimated GFR (Non-African Ame >60 (>=60); Globulin 4.8 g/dL; Glucose 107 mg/dL (74-106); Potassium 3.7 mmol/L (3.5-5.1); Sodium 142 mmol/L (136-145); Total Protein 8.1 g/dL (6.4-8.2)
[2023-10-17] MEDS: AMPICILLIN SODIUM/SULBACTAM NA 3 GM in 0.9 % SODIUM CHLORIDE 100 ML IV (23:40)
[2023-10-18 00:35] VITALS: BP 128/62; PULSE 80; RESP 16; TEMP 37.4; O2SAT 96
[2023-10-20 17:50] LABS: A. calcoaceticus-baumannii Cpx NOT DETECTED (NOT DETECTE); Bacteroides fragilis NOT DETECTED (NOT DETECTE); Candida albicans NOT DETECTED (NOT DETECTE); Candida auris NOT DETECTED (NOT DETECTE); Candida glabrata NOT DETECTED (NOT DETECTE); Candida krusei NOT DETECTED (NOT DETECTE); Candida parapsilosis NOT DETECTED (NOT DETECTE); Candida tropicalis NOT DETECTED (NOT DETECTE); Cryptococcus neoformans/gattii NOT DETECTED (NOT DETECTE); Enterobacter cloacae complex NOT DETECTED (NOT DETECTE); Enterobacterales NOT DETECTED (NOT DETECTE); Enterococcus faecalis NOT DETECTED (NOT DETECTE); Enterococcus faecium NOT DETECTED (NOT DETECTE); Haemophilus influenzae NOT DETECTED (NOT DETECTE); Klebsiella aerogenes NOT DETECTED (NOT DETECTE); Klebsiella pneumoniae group NOT DETECTED (NOT DETECTE); Listeria monocytogenes NOT DETECTED (NOT DETECTE); Neisseria meningitidis NOT DETECTED (NOT DETECTE); Proteus spp. NOT DETECTED (NOT DETECTE); Pseudomonas aeruginosa NOT DETECTED (NOT DETECTE); Salmonella spp. NOT DETECTED (NOT DETECTE); Serratia marcescens NOT DETECTED (NOT DETECTE); Staphylococcus epidermidis NOT DETECTED (NOT DETECTE); Staphylococcus lugdunensis NOT DETECTED (NOT DETECTE); Staphylococcus spp. NOT DETECTED (NOT DETECTE); Stenotrophomonas maltophilia NOT DETECTED (NOT DETECTE); Streptococcus agalactiae NOT DETECTED (NOT DETECTE); Streptococcus pneumoniae NOT DETECTED (NOT DETECTE); Streptococcus pyogenes NOT DETECTED (NOT DETECTE); Streptococcus spp. NOT DETECTED (NOT DETECTE)
[2023-10-21 07:56] LABS: Source BLOOD
== END 2023-10-18 00:37 | disposition home or self-care (01) ==
PROVIDERS: Emergency Provider Emergency Medicine; PCP Family Medicine
DX: K62.89 Other specified diseases of anus and rectum (principal); E66.01 Morbid (severe) obesity due to excess calories; F50.9 Eating disorder, unspecified; Z86.16 Personal history of COVID-19; M87.88 Other osteonecrosis, other site; Z68.43 Body mass index [BMI] 50.0-59.9, adult
CPT/HCPCS: 36415; 74177; 80053; 83605; 85025; 87040; 87150; 96365; 96375; 99285; J0295; J2270; J2405; Q9967

== ENCOUNTER 2023-11-17 10:33 | Outpatient (OUT) | payer OTHER, SELFPAY ==
--- NOTE | 2023-11-17 10:36 | MR_ITS ---
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 Please evaluate. Avascular Necrosis Of Bone Of Left Hip M87.052 MR hip LT wo con: 11/17/2023 10:45 AM EDT COMPARISON: CT scan abdomen and pelvis 10/17/2023. TECHNIQUE: Multiplanar, multisequence MRI images of the pelvis and left hip were obtained without contrast. FINDINGS: The examination is slightly degraded by decreased [id number] ratio related to the patient's body habitus. There are moderate degenerative changes again seen of the sacroiliac joints. The bone marrow signal intensity appears age appropriate. Incidental note is made of small bone islands within the superior pubic rami bilaterally. There is redemonstration of a large focus of avascular necrosis involving 100% of the weightbearing portion of the right femoral head and this extends into the subchondral bone of the anterior aspect of the right femoral head. There is a similar appearance of mild irregularity of the articular surface of the anterosuperior aspect of the right femoral head as seen on the prior CT scan. However, there is no significant surrounding bone marrow edema in this region. There are mild degenerative changes of the right hip joint. As seen on the prior CT scan there are patchy foci of avascular necrosis involving the subchondral bone of the anterior, superior and posterior aspect of the left femoral head. This involves 75% of the cross-sectional area of the superior weightbearing portion of the left femoral head. There is a similar appearance of mild irregularity of the articular surface of the anterosuperior aspect of the left femoral head. However, there is no significant adjacent bone marrow edema. There are mild degenerative changes of the anterior aspect of the left hip joint. No labral tear is seen. No trochanteric or iliopsoas bursitis is seen. No muscle edema is seen. MR/MR hip LT wo con IMPRESSION: 1. 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 There are associated mild degenerative changes of the hip joints bilaterally, but there is no significant bone marrow edema within the femoral heads. 2. 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 Electronically authenticated by: GERA JOHNSON Date: 11/17/2023 16:30
--- OUTSIDE RECORDS SUMMARY | 2023-11-17 10:56 | XMS_ITS | CCD ---
Author Organization [facility] Care Team Providers Care Rn Med Surg Name Role Phone KANWAL, DR WILDER Attending Unavailable KANWAL, DR WILDER Consulting Unavailable KANWAL, DR WILDER Primary Care Unavailable KANWAL, DR WILDER Admitting Unavailable HEMRENATE OVALLE Attending Unavailable HEMRENATE OVALLE Attending Unavailable VICENTE CISNEROS Attending Unavailable APLDARLENE WOODWARD Attending Unavailable DARLENE CARMONA Referring Unavailable Problems Active Problems Problem Classification Problem [...] D-Dimer High Sensitivity 302 ng/mL High 0-243 [facility] Comment on above: Order Comment: Comme nt [...] patients due to co-morbid conditions. PERFORMED BY: [place] [address] PATHOLOGIST PROPERTY CONTROLLER KIRILL GREER M.D. Performed By: #### B INVESTMENT SPECIALIST, HS TROP, PTT, CBC, CMP, PT #### [facility] [address] [place] [address] [facility] D-Dimer High Sensitivityon 0 05-18-2021 D-Dimer High Sensitivity 246 ng/mL High 0-243 [facility] Comment on above: Order Comment: Comme nt [...] patients due to co-morbid conditions. PERFORMED BY: [address] [address] PATHOLOGIST PROPERTY CONTROLLER KIRILL GREER M.D. Performed By: #### B INVESTMENT SPECIALIST, HS TROP, PTT, CBC, CMP, PT #### [address] [address] [facility] D-Dimer High Sensitivityon 0 05-17-2021 D-Dimer High Sensitivity < 200 Normal 0-243 [facility] Comment on above: Order Comment: Comme nt [...] patients due to co-morbid conditions. PERFORMED BY: [place] [address] PATHOLOGIST PROPERTY CONTROLLER KIRILL GREER M.D. Performed By: #### B INVESTMENT SPECIALIST, HS TROP, PTT, CBC, CMP, PT #### [address] D-Dimer High Sensitivityon 0 05-16-2021 D-Dimer High Sensitivity 239 ng/mL Normal 0-243 [facility] Comment on above: Order Comment: Comme nt [...] patients due to co-morbid conditions. PERFORMED BY: [place] [address] PATHOLOGIST PROPERTY CONTROLLER KIRILL GREER M.D. Performed By: #### B INVESTMENT SPECIALIST, HS TROP, PTT, CBC, CMP, PT #### [place] [id number] [facility] B-Type Natriuretic Peptideon 05-15-2021 Natriuretic peptide B (Bld) [Mass/Vol] 24.0 pg/mL Normal 5-100 [facility] Comment on above: Result Comment: PERF ORMED BY: [place] [address] PATHOLOGIST PROPERTY CONTROLLER KIRILL GREER M.D. Performed By: #### B INVESTMENT SPECIALIST, HS TROP, PTT, CBC, CMP, PT #### [address] [place] [address] [place] BioFire Detectedon BioFire Detected Detected Critically abnormal Not Detect e [facility] Comment on above: Result Comment: This is a duplicate RP2.1 COVID (PCR) result to be used for statistical tracking purpose only. PERFORMED BY: [facility] [address] [place] [address] PATHOLOGIST PROPERTY CONTROLLER KIRILL GREER M.D. Performed By: #### R OLVIN PANEL UPP., BIOFIRECOVDET ####[facility] [id number] Blood Cultureon 05-15-2021 Bacteria identified Cx Nom [...] RESISTANT TO ALL B-LACTAM DRUGS. PERFORMED BY: [place] [address] PATHOLOGIST PROPERTY CONTROLLER KIRILL GREER M.D. [facility] Comment on above: Performed By: #### L MELVA DEVINE ####[place] [id number] [address] Bacteria identified Cx Nom (Bld) NO GROWTH 5 DAYS PERFORMED BY: [place] [address] PATHOLOGIST PROPERTY CONTROLLER KIRILL GREER M.D. [facility] Comment on above: Performed By: #### L MELVA DEVINE #### [address] COVID-19 Antigenon 1 COVID-19 Antigen Healthcare Worker?: [...] its performance Gio Disclaimer characteristic determined by [employer] and Gio Disclaimer validated at [facility]. This Gio Disclaimer test has not been [...] Emergency Use Authorization for Coronavirus Gio Disclaimer iseas2019 during the Public Health Emergency) Gio Disclaimer [...] is terminated or revoked sooner. PERFORMED BY: [facility] [address] [place] [address] PATHOLOGIST PROPERTY CONTROLLER KIRILL GREER M.D. Normal [facility] Comment on above: Performed By: #### S VIOLETA BLISSID-19 GIO ####[place] [id number] [facility] Complete Blood Count Auto Di ffon 05-15-2021 Basophils (Bld) [#/Vol] 0.0 10*3/uL Normal 0.0-0.2 [facility] Comment on above: Result Comment: PERF ORMED BY: [facility] [address] [place] [address] PATHOLOGIST PROPERTY CONTROLLER KIRILL GREER M.D. Performed By: #### P T, DDIMER, CBC ####[address] Basophils/100 WBC (Bld) 0.1 % Normal . [facility] Comment on above: Performed By: #### P T, DDIMER, CBC ####[place] [id number] [facility] Eosinophils (Bld) [#/Vol] 0.0 10*3/uL Normal 0.0-0.45 [facility] Comment on above: Performed By: #### P T, DDIMER, CBC ####[place] [id number] [facility] Eosinophils/100 WBC (Bld) 0.0 % Normal . [facility] Comment on above: Performed By: #### P T, DDIMER, CBC ####[place] [id number] [facility] Erythrocyte distribution width (RBC) [Ratio] 14.5 % Normal 12.0-14.8 [facility] Comment on above: Performed By: #### P T, DDIMER, CBC ####[address] Hematocrit (Bld) [Volume fraction] 49.1 % Normal 38.8-50.0 [facility] Comment on above: Performed By: #### P T, DDIMER, CBC ####[address] Hemoglobin (Bld) [Mass/Vol] 16.4 g/dL Normal 13.0-17.0 [facility] Comment on above: Performed By: #### P T, DDIMER, CBC ####[address] Lymphocytes (Bld) [#/Vol] 0.7 10*3/uL Low 1.00-4.8 [facility] Comment on above: Performed By: #### P T, DDIMER, CBC ####[address] Lymphocytes/100 WBC (Bld) 7.2 % Normal . [facility] Comment on above: Performed By: #### P T, DDIMER, CBC ####[address] MCH (RBC) [Entitic mass] 28.1 pg Normal 27.5-35.2 [facility] Comment on above: Performed By: #### P T, DDIMER, CBC ####[address] MCV (RBC) [Entitic vol] 83.9 fL Normal 83.5-101 [facility] Comment on above: Performed By: #### P T, DDIMER, CBC ####[place] [id number] [facility] Mean Corpuscular HGB Conc 33.4 g/dL Normal 32.5-35.6 [facility] Comment on above: Performed By: #### P T, DDIMER, CBC ####[address] Monocytes (Bld) [#/Vol] 0.3 10*3/uL Normal 0.0-0.8 [facility] Comment on above: Performed By: #### P T, DDIMER, CBC ####[address] Monocytes/100 WBC (Bld) 3.0 % Normal . [facility] Comment on above: Performed By: #### P T, DDIMER, CBC ####[address] Neutrophils (Bld) [#/Vol] 8.7 10*3/uL High 1.8-7.7 [facility] Comment on above: Performed By: #### P T, DDIMER, CBC ####[address] Neutrophils/100 WBC (Bld) 89.7 % Normal . [facility] Comment on above: Performed By: #### P T, DDIMER, CBC ####[address] Nucleated RBC/100 WBC (Bld) [Ratio] 0.1 % Normal 0-0.5 [facility] Comment on above: Performed By: #### P T, DDIMER, CBC ####[address] Platelet mean volume (Bld) [Entitic vol] 8.0 fL Normal 6.6-10.1 [facility] Comment on above: Performed By: #### P T, DDIMER, CBC ####[address] Platelets (Bld) [#/Vol] 188 10*3/uL Normal 150-450 [facility] Comment on above: Performed By: #### P T, DDIMER, CBC ####[address] RBC (Bld) [#/Vol] 5.85 10*6/uL High 3.90-5.60 [facility] Comment on above: Performed By: #### P T, DDIMER, CBC ####[address] [place] [address] [place] WBC (Bld) [#/Vol] 9.7 10*3/uL Normal 4.5-11.0 [facility] Comment on above: Performed By: #### P T, DDIMER, CBC ####[facility] [id number] Basophils (Bld) [#/Vol] 0.0 10*3/uL Normal 0.0-0.2 [facility] Comment on above: Result Comment: PERF ORMED BY: [facility] [address] [place] [address] PATHOLOGIST PROPERTY CONTROLLER KIRILL GREER M.D. Performed By: #### B INVESTMENT SPECIALIST, HS TROP, PTT, CBC, CMP, PT #### [facility] [address] [place] [address] Basophils/100 WBC (Bld) 0.4 % Normal . [facility] Comment on above: Performed By: #### B INVESTMENT SPECIALIST, HS TROP, PTT, CBC, CMP, PT #### [facility] [address] Eosinophils (Bld) [#/Vol] 0.0 10*3/uL Normal 0.0-0.45 [facility] Comment on above: Performed By: #### B INVESTMENT SPECIALIST, HS TROP, PTT, CBC, CMP, PT #### [facility] [address] Eosinophils/100 WBC (Bld) 0.0 % Normal . [facility] Comment on above: Performed By: #### B INVESTMENT SPECIALIST, HS TROP, PTT, CBC, CMP, PT #### [facility] [address] Erythrocyte distribution width (RBC) [Ratio] 14.7 % Normal 12.0-14.8 [facility] Comment on above: Performed By: #### B INVESTMENT SPECIALIST, HS TROP, PTT, CBC, CMP, PT #### [facility] [address] Hematocrit (Bld) [Volume fraction] 49.1 % Normal 38.8-50.0 [facility] Comment on above: Performed By: #### B INVESTMENT SPECIALIST, HS TROP, PTT, CBC, CMP, PT #### [address] Hemoglobin (Bld) [Mass/Vol] 16.4 g/dL Normal 13.0-17.0 [facility] Comment on above: Performed By: #### B INVESTMENT SPECIALIST, HS TROP, PTT, CBC, CMP, PT #### [address] Lymphocytes (Bld) [#/Vol] 1.2 10*3/uL Normal 1.00-4.8 [facility] Comment on above: Performed By: #### B INVESTMENT SPECIALIST, HS TROP, PTT, CBC, CMP, PT #### [address] Lymphocytes/100 WBC (Bld) 12.3 % Normal . [facility] Comment on above: Performed By: #### B INVESTMENT SPECIALIST, HS TROP, PTT, CBC, CMP, PT #### [address] MCH (RBC) [Entitic mass] 27.9 pg Normal 27.5-35.2 [facility] Comment on above: Performed By: #### B INVESTMENT SPECIALIST, HS TROP, PTT, CBC, CMP, PT #### [address] MCV (RBC) [Entitic vol] 83.6 fL Normal 83.5-101 [facility] Comment on above: Performed By: #### B INVESTMENT SPECIALIST, HS TROP, PTT, CBC, CMP, PT #### [address] Mean Corpuscular HGB Conc 33.4 g/dL Normal 32.5-35.6 [facility] Comment on above: Performed By: #### B INVESTMENT SPECIALIST, HS TROP, PTT, CBC, CMP, PT #### [address] Monocytes (Bld) [#/Vol] 0.4 10*3/uL Normal 0.0-0.8 [facility] Comment on above: Performed By: #### B INVESTMENT SPECIALIST, HS TROP, PTT, CBC, CMP, PT #### [place] [address] [place] Monocytes/100 WBC (Bld) 3.8 % Normal . [facility] Comment on above: Performed By: #### B INVESTMENT SPECIALIST, HS TROP, PTT, CBC, CMP, PT #### [place] [address] [place] Neutrophils (Bld) [#/Vol] 8.5 10*3/uL High 1.8-7.7 [facility] Comment on above: Performed By: #### B INVESTMENT SPECIALIST, HS TROP, PTT, CBC, CMP, PT #### [address] Neutrophils/100 WBC (Bld) 83.5 % Normal . [facility] Comment on above: Performed By: #### B INVESTMENT SPECIALIST, HS TROP, PTT, CBC, CMP, PT #### [place] [address] [place] Nucleated RBC/100 WBC (Bld) [Ratio] 0.1 % Normal 0-0.5 [facility] Comment on above: Performed By: #### B INVESTMENT SPECIALIST, HS TROP, PTT, CBC, CMP, PT #### [address] Platelet mean volume (Bld) [Entitic vol] 8.1 fL Normal 6.6-10.1 [facility] Comment on above: Performed By: #### B INVESTMENT SPECIALIST, HS TROP, PTT, CBC, CMP, PT #### [place] [address] [place] Platelets (Bld) [#/Vol] 202 10*3/uL Normal 150-450 [facility] Comment on above: Performed By: #### B INVESTMENT SPECIALIST, HS TROP, PTT, CBC, CMP, PT #### [place] [address] [place] RBC (Bld) [#/Vol] 5.87 10*6/uL High 3.90-5.60 [facility] Comment on above: Performed By: #### B INVESTMENT SPECIALIST, HS TROP, PTT, CBC, CMP, PT #### [facility] [address] WBC (Bld) [#/Vol] 10.2 10*3/uL Normal 4.5-11.0 [facility] Comment on above: Performed By: #### B INVESTMENT SPECIALIST, HS TROP, PTT, CBC, CMP, PT #### [facility] [address] Comprehensive Metabolic Pane giovana 05-15-2021 Albumin [Mass/Vol] 2.7 g/dL Low 3.2-5.5 [facility] Comment on above: Performed By: #### C MP ####[address] Albumin/Globulin [Mass ratio] 0.7 {ratio} Normal [facility] Comment on above: Performed By: #### C MP ####[address] ALP [Catalytic activity/Vol] 70 U/L Normal 32-92 [facility] Comment on above: Performed By: #### C MP ####[place] [id number] [facility] ALT [Catalytic activity/Vol] 125 U/L High 10-60 [facility] Comment on above: Performed By: #### C MP ####[place] [id number] [facility] AST [Catalytic activity/Vol] 181 U/L High 10-42 [facility] Comment on above: Performed By: #### C MP ####[place] [id number] [facility] Bilirubin [Mass/Vol] 1.2 mg/dL Normal 0.3-1.2 [facility] Comment on above: Performed By: #### C MP ####[address] Calcium [Mass/Vol] 8.2 mg/dL Normal 8.2-10.2 [facility] Comment on above: Performed By: #### C MP ####[place] [address] [place] [id number] [facility] Chloride [Moles/Vol] 102 mmol/L Normal 95-114 [facility] Comment on above: Performed By: #### C MP ####[place] [id number] [facility] CO2 [Moles/Vol] 23.8 mmol/L Normal 22.0-30.0 [facility] Comment on above: Performed By: #### C MP ####[place] [id number] [facility] Creatinine [Mass/Vol] 0.84 mg/dL Normal 0.64-1.27 [facility] Comment on above: Performed By: #### C MP ####[place] [id number] [facility] Creatinine Clr Calc Pharmacy 197.65 [facility] Comment on above: Result Comment: PERF ORMED BY: [facility] [address] [place] [address] PATHOLOGIST PROPERTY CONTROLLER KIRILL GREER M.D. Performed By: #### C MP ####[address] Estimated GFR ( Patricia > 60 [facility] Comment on above: Result Comment: GFR estimated reference range: According to KDOQI guidelines, <60 ml/min/1.73m2 is sufficient to diagnose a patient with chronic kidney disease. Performed By: #### C MP ####[place] [id number] [facility] Estimated GFR (Non- Am > 60 [facility] Comment on above: Performed By: #### C MP ####[place] [id number] [facility] Globulin (S) [Mass/Vol] 4.1 g/dL [facility] Comment on above: Performed By: #### C MP ####[place] [id number] [facility] Glucose [Mass/Vol] 161 mg/dL High 70-100 [facility] Comment on above: Result Comment: [facility] [place][note 2] Glucose Reference Range is dependent on time and content of last meal. Glucose of more than 200 mg/dL in a nonstressed, ambulatory subject supports the diagnosis of Diabetes Mellitus. ADA recommended reference range Performed By: #### C MP ####[facility] [place] [id number] [facility] Potassium [Moles/Vol] 4.1 mmol/L Normal 3.5-5.1 [facility] Comment on above: Performed By: #### C MP ####[facility] [place] [id number] [facility] Protein [Mass/Vol] 6.8 g/dL Normal 6.1-7.9 [facility] Comment on above: Performed By: #### C MP ####[place] [address] [place] [id number] [facility] Sodium [Moles/Vol] 137 mmol/L Normal 136-146 [facility] Comment on above: Performed By: #### C MP ####[facility] [place] [id number] [facility] Urea nitrogen [Mass/Vol] 10 mg/dL Normal 9-23 [facility] Comment on above: Performed By: #### C MP ####[place] [address] [place] [id number] [facility] Albumin [Mass/Vol] 2.9 g/dL Low 3.2-5.5 [facility] Comment on above: Performed By: #### B INVESTMENT SPECIALIST, HS TROP, PTT, CBC, CMP, PT #### [facility] [address] [place] [id number] [place] Albumin/Globulin [Mass ratio] 0.6 {ratio} Normal [facility] Comment on above: Performed By: #### B INVESTMENT SPECIALIST, HS TROP, PTT, CBC, CMP, PT #### [facility] [address] [place] [id number] [place] ALP [Catalytic activity/Vol] 65 U/L Normal 32-92 [facility] Comment on above: Performed By: #### B INVESTMENT SPECIALIST, HS TROP, PTT, CBC, CMP, PT #### [address] ALT [Catalytic activity/Vol] 134 U/L High 10-60 [facility] Comment on above: Performed By: #### B INVESTMENT SPECIALIST, HS TROP, PTT, CBC, CMP, PT #### [address] AST [Catalytic activity/Vol] 215 U/L High 10- [facility] Comment on above: Performed By: #### B INVESTMENT SPECIALIST, HS TROP, PTT, CBC, CMP, PT #### [address] Bilirubin [Mass/Vol] 0.9 mg/dL Normal 0.3-1.2 [facility] Comment on above: Performed By: #### B INVESTMENT SPECIALIST, HS TROP, PTT, CBC, CMP, PT #### [address] Calcium [Mass/Vol] 8.3 mg/dL Normal 8.2-10.2 [facility] Comment on above: Performed By: #### B INVESTMENT SPECIALIST, HS TROP, PTT, CBC, CMP, PT #### [address] Chloride [Moles/Vol] 102 mmol/L Normal 95-114 [facility] Comment on above: Performed By: #### B INVESTMENT SPECIALIST, HS TROP, PTT, CBC, CMP, PT #### [address] CO2 [Moles/Vol] 22.1 mmol/L Normal 22.0-30.0 [facility] Comment on above: Performed By: #### B INVESTMENT SPECIALIST, HS TROP, PTT, CBC, CMP, PT #### [address] Creatinine [Mass/Vol] 0.75 mg/dL Normal 0.64-1.27 [facility] Comment on above: Performed By: #### B INVESTMENT SPECIALIST, HS TROP, PTT, CBC, CMP, PT #### [address] Creatinine Clr Calc Pharmacy 224.61 [facility] Comment on above: Result Comment: PERF ORMED BY: [place] [address] PATHOLOGIST PROPERTY CONTROLLER KIRILL GREER M.D. Performed By: #### B INVESTMENT SPECIALIST, HS TROP, PTT, CBC, CMP, PT #### [address] Estimated GFR ( Patricia > 60 [facility] Comment on above: Result Comment: GFR estimated reference range: According to KDOQI guidelines, <60 ml/min/1.73m2 is sufficient to diagnose a patient with chronic kidney disease. Performed By: #### B INVESTMENT SPECIALIST, HS TROP, PTT, CBC, CMP, PT #### [address] Estimated GFR (Non- Am > 60 [facility] Comment on above: Performed By: #### B INVESTMENT SPECIALIST, HS TROP, PTT, CBC, CMP, PT #### [address] Globulin (S) [Mass/Vol] 4.7 g/dL [facility] Comment on above: Performed By: #### B INVESTMENT SPECIALIST, HS TROP, PTT, CBC, CMP, PT #### [address] Glucose [Mass/Vol] 108 mg/dL High 70-100 [facility] Comment on above: Result Comment: [place] Glucose Reference Range is dependent on time and content of last meal. Glucose of more than 200 mg/dL in a nonstressed, ambulatory subject supports the diagnosis of Diabetes Mellitus. ADA recommended reference range Performed By: #### B INVESTMENT SPECIALIST, HS TROP, PTT, CBC, CMP, PT #### [address] Potassium [Moles/Vol] 3.8 mmol/L Normal 3.5-5.1 [facility] Comment on above: Performed By: #### B INVESTMENT SPECIALIST, HS TROP, PTT, CBC, CMP, PT #### [facility] [address] [place] [id number] [facility] Protein [Mass/Vol] 7.6 g/dL Normal 6.1-7.9 [facility] Comment on above: Performed By: #### B INVESTMENT SPECIALIST, HS TROP, PTT, CBC, CMP, PT #### [facility] [address] Sodium [Moles/Vol] 135 mmol/L Low 136-146 [facility] Comment on above: Performed By: #### B INVESTMENT SPECIALIST, HS TROP, PTT, CBC, CMP, PT #### [facility] [address] Urea nitrogen [Mass/Vol] 9 mg/dL Normal - [facility] Comment on above: Performed By: #### B INVESTMENT SPECIALIST, HS TROP, PTT, CBC, CMP, PT #### [address] D-Dimer High Sensitivityon 0 05-15-2021 D-Dimer High Sensitivity 268 ng/mL High 0-243 [facility] Comment on above: Order Comment: Comme nt [...] patients due to co-morbid conditions. PERFORMED BY: [place] [address] PATHOLOGIST PROPERTY CONTROLLER KIRILL GREER M.D. Performed By: #### P T, DDIMER, CBC ####[facility] [id number] ECG 12 lead ECGon 05-15-2021 ECG [address] [facility] [address] Electrocardiograph Report Signed Patient: Scooter Ordonez MR#: [id number] : 1995 Acct:[id number] Age/Sex: 26 / M ADM Date: 05/15/21 Loc: 4 Room: [address] [place] [address] Type: ADM IN Attending Dr: Pati Montoya [...] normal ECG Confirmed by Will Basilio DO ([id number]) on 05/15/2021 6:43:50 AM Referred By: Electronically Signed By:Will Basilio DO Transcribed By: MUS Signed By Will Basilio DO 05/15 0643 Normal [facility] Lactic Acidon 05-15-2021 Lactate [Moles/Vol] 1.1 mmol/L Normal 0.5-2.2 [facility] Comment on above: Result Comment: PERF ORMED BY: [place] [address] PATHOLOGIST PROPERTY CONTROLLER KIRILL GREER M.D. Performed By: #### L ACTIC CUBLD #### [place] [id number] [facility] Partial Thromboplastin Timeo n 05-15-2021 aPTT Coag (Bld) [Time] 33.1 s Normal 25.1-36.5 [facility] Comment on above: Result Comment: PERF ORMED BY: [place] [address] PATHOLOGIST PROPERTY CONTROLLER KIRILL GREER M.D. Performed By: #### B INVESTMENT SPECIALIST, HS TROP, PTT, CBC, CMP, PT #### [facility] [address] [place] [address] [place] Prothrombin Time INRon 05-15 INR Coag (PPP) [Relative time] 1.1 {INR} Normal [facility] Comment on above: Order Comment: Comme nt [...] Performed By: #### P T, DDIMER, CBC ####[address] PT Coag (PPP) [Time] 12.2 s Normal 9.0-12.9 [facility] Comment on above: Order Comment: Comme nt add Performed By: #### P T, DDIMER, CBC ####[address] INR Coag (PPP) [Relative time] 1.1 {INR} Normal [facility] Comment on above: Result Comment: INR Therapeutic [...] 3 - 4.5 Performed By: #### B INVESTMENT SPECIALIST, HS TROP, PTT, CBC, CMP, PT #### [facility] [address] [place] [address] PT Coag (PPP) [Time] 11.8 s Normal 9.0-12.9 [facility] Comment on above: Performed By: #### B INVESTMENT SPECIALIST, HS TROP, PTT, CBC, CMP, PT #### [facility] [address] [place] [address] [place] Respiratory (Upper) Panel, P CRon 05-15-2021 Respiratory [...] Space COVID-19 Detected/Not Detected Detected PERFORMED BY: [facility] [address] [place] [address] PATHOLOGIST PROPERTY CONTROLLER KIRILL GREER M.D. Normal [facility] Comment on above: Performed By: #### R OLVIN PANEL UPP., BIOFIRECOVDET ####[facility] [facility] [id number] [place] [address] [facility] Gio Ag Negativeon 05-15-20 21 Gio Ag Negative Negative Normal Negative [facility] Comment on above: Result Comment: This is a duplicate Gio SARS Antigen (MANGO) result to be used for statistical tracking purpose only. PERFORMED BY: [facility] [address] [place] [address] PATHOLOGIST PROPERTY CONTROLLER KIRILL GREER M.D. Performed By: #### S RUTHY COVID-19 GIO ####[facility] [id number] [place] [id number] [facility] Troponin I High Sensitivityo n 05-15-2021 Troponin I High Sensitivity 15 pg/mL Normal 0-20 [facility] Comment on above: Result Comment: PERF ORMED BY: [place] [address] PATHOLOGIST PROPERTY CONTROLLER KIRILL GREER M.D. Performed By: #### B INVESTMENT SPECIALIST, HS TROP, PTT, CBC, CMP, PT #### [facility] [address] [place], [place] [id number] [facility] XR chest 1V portableon 05-[address] [facility] [address] XRay Report Signed Patient: Scooetr Ordonez MR#: [id number] : 1995 Acct:[id number] Age/Sex: 26 / M ADM Date: 05/15/21 Loc: Room: [address] [place] [address] Type: ADM IN Attending Dr: Pati Montoya [...] Renate Lopez M.D.05/15/2021 8:18 AM Dictation Location: [place] [address] Transcribed By: [facility] 05/15/21817 Dictated By: Renate Lopez MD 05/15/21816 Signed By: 05/15/21817 Normal [facility] ECG 12 lead ECGon 05-10-2021 [address] [facility] [address] [place] [id number] Electrocardiograph Report Signed Patient: Scooter Ordonez MR#: [id number] : 1995 Acct:[id number] Age/Sex: 26 / M ADM Date: 05/10/21 Loc: ER Room: Type: [facility] ER Attending Dr: Ordering Provider: Noam Falcon [...] By Noam Falcon MD 04/23 04/12 1523 [facility] XR chest 1V portableon 05-10 XR [place] 1[place] [address] XRay Report Signed Patient: Scooter Ordonez MR#: [id number] : 1995 Acct:[id number] Age/Sex: 26 / M ADM Date: 05/10/21 Loc: ER Room: Type: [facility] ER Attending Dr: Ordering Provider: Noam Falcon [...] Sander Joaquin M.D.05/10/2021 8:42 AM Dictation Location: [place] [address] Transcribed By: ALFREDO 05/10/21841 Dictated By: Sander Joaquin II, MD 05/10/21840 Signed By: 05/10/21841 [facility] Covid-19 PCR (CVDTBH)on 04-23 SARS-CoV-2 (COVID-19) RNA COLEMAN+probe Ql (Unsp spec) Detected Invalid Interpretation Code NOT DETECTED [facility] Comment on above: Result Comment: This test is not yet approved or cleared by the [place] FDA. When there are no FDA-approved or cleared tests available, and other criteria are met, FDA can make tests available under an emergency access mechanism called an Emergency Use Authorization (EUA). The EUA for this test is supported by the [place] of Health and Human Service's (HHS's) declaration [...] longer be used). Performed By: #### C VDTB #### [facility] [address] [place] [address] [address] Jono Ortiz Encounters Encounter Date Encounter Type Care Provider Facility Start: 10-27-2023 End: 10-28-2023 ambulatory DARLENE Wells APLING Not Available Start: 10-22-2023 End: 10-22-2023 ambulatory VICENTE OWENS V Not Available Start: 10-20-2023 End: 10-20-2023 ambulatory RENATE SCOTT Not Available Start: 10-13-2023 End: 10-13-2023 ambulatory RENATE SCOTT Not Available Start: 05-06-2021 End: 05-06-[address] TINA SCHOFIELD Facility: Payers Date Payer Category Payer Private Health Insurance [id number] 1995 Unknown [id number] 2.16.84 [id number] 1995 Unknown [id number] 2.16.84 [id number] 1995 Unknown [id number] 2.16.84 [id number] 1995 Unknown [id number] 2.16.84 [id number] 1995 Unknown [id number] 2.16.84 [id number] 1995 Unknown [id number] 2.16.84 [id number] 1995 Unknown [id number] 2.16.84 [id number] 1959 Unknown [id number] Summary Purpose Family History No Family History Records FoundNo Family History Records FoundNo Family History Records Found Advance Directives No Advanced Directives Records FoundNo Advanced Directives Records FoundNo Advanced Directives Records Found Additional Source Comments (unrecognized sect ion and content) No Status Records FoundNo Status Records FoundNo Status Records Found INFORMATION SOURCE (unrecogn ized section and content) DATE CREATED AUTHOR 05/11/2021 [facility] DATE CREATED AUTHOR AUTHOR'S ORGANIZ ATION 09/16/2021 [facility] DATE CREATED AUTHOR AUTHOR'S ORGANIZ ATION 10/31/2023 [facility] FOR RECORDS PERTAINING TO PATIENTS WHO ARE [...] BE BASED ON THE PRIMARY CLINICAL RECORDS. [facility] [facility]. provides no warranty or guarantee of the accuracy or completeness of information in this document.
== END 2023-11-17 10:34 | disposition home or self-care (01) ==
LOC: MRI 10:33
PROVIDERS: PCP Family Medicine; Visit Provider Nurse Practitioner Family
DX: M87.052 Idiopathic aseptic necrosis of left femur (principal); M87.88 Other osteonecrosis, other site
CPT/HCPCS: 73721